=== PATIENT | female | born 1975 | race Caucasian/White ===

== ENCOUNTER → 2016-06-18 | Outpatient (CLI) | payer BC, OTHER ==
[~2016-06-18] MED LIST: ALEN70TA3 PO; DICY10CA55 PO; FRCT/ PO; LEVO112T2 PO; LEVO125T72 PO; LEVOIUD; MULT-506 PO; NXM/40 PO; PANT40TA PO; PRMVC TOP; VENL1CAP92 PO; [UNRECOGNIZED DRUG - CODE] TOP
--- NOTE | 2016-06-18 18:15 | DIAGNOSTIC IMAGING REPORT ---
RIGHT FOOT MIN 3 VIEWS ROUTINE CLINICAL HISTORY: Right foot pain following injury. COMPARISON: None FINDINGS: Alignment of the right foot is anatomic. Tarsometatarsal joints are intact. A lucency projects of the base of the right second metatarsal. This is probably artifactual. No definite acute fracture is present. There is mild plantar calcaneal spurring. Soft tissue swelling of the midfoot shown on lateral projection. IMPRESSION: 1. No definite acute fracture or dislocation of the right foot. 2. Lucency projecting over the base of the right second metatarsal. This is likely artifactual. A nondisplaced fracture could appear similar although is considered less likely. If persistent pain, short-term radiographic follow-up is recommended. Anatomic alignment of tarsometatarsal joints. Electronically signed by: Frandy William M.D. 06/18/2016 6:14 PM Dictated Date/Time: 06/18/2016 6:12 PM
== END | disposition home or self-care (01) ==
LOC: C.RAD 17:19
PROVIDERS: ATTEND Family Medicine
DX: M79.671 Pain in right foot (principal)

== ENCOUNTER → 2016-07-14 | Outpatient (CLI) | payer BC, OTHER ==
--- NOTE | 2016-07-14 19:43 | DIAGNOSTIC IMAGING REPORT ---
RIGHT FOOT 3 VIEWS. CLINICAL HISTORY: Right foot pain. FINDINGS: 3 views of the right foot are compared to study dated 06/18/2016. The skeletal structures are well mineralized. No acute fracture is identified. Minimal lucency through the base of the second metatarsal is less apparent than on the 06/18/2016 examination. The joint spaces appear preserved. A large os naviculari is incidentally noted. There is a plantar calcaneal enthesophyte. Mild soft tissue swelling is suggested in the forefoot. IMPRESSION: 1. No acute fracture is identified. 2. Previously questioned lucency through the base of the second metatarsal is less apparent on today's examination. Electronically signed by: Edu Mcdonald M.D. 07/14/2016 7:42 PM Dictated Date/Time: 07/14/2016 7:40 PM
== END | disposition home or self-care (01) ==
LOC: C.RAD 17:06
PROVIDERS: ATTEND Family Medicine
DX: T14.8 Other injury of unspecified body region (principal); X58.XXXA Exposure to other specified factors, initial encounter

== ENCOUNTER → 2016-09-26 | Outpatient (CLI) | payer BC, OTHER ==
[~2016-09-26] MED LIST changes: -ALEN70TA3 PO; -FRCT/ PO; -LEVO112T2 PO; -MULT-506 PO; -PANT40TA PO; -PRMVC TOP; -VENL1CAP92 PO; -[UNRECOGNIZED DRUG - CODE] TOP
--- NOTE | 2016-09-26 07:28 | DIAGNOSTIC IMAGING REPORT ---
MRI THE RIGHT FOREFOOT NO CONTRAST CLINICAL HISTORY: Right foot pain status post trauma. No fractures visualized on conventional radiographic imaging. COMPARISON STUDY: Conventional radiographic study dated 06/18/2016, 07/14/2016 FINDINGS: Imaging was performed in the sagittal, coronal, and axial planes. No pathologic soft tissue masses are visualized on this noncontrast study. There is mild medial soft tissue edema, the level the ankle. There is mild dorsal soft tissue edema within the forefoot. There are no areas of marrow edema to indicate occult fracture. No subluxations are visualized. There are no areas of marrow replacement to indicate neoplasm. There are no findings to indicate avascular necrosis. IMPRESSION: 1. Mild nonspecific soft tissue edema 2. No evidence of occult fracture or dislocation Electronically signed by: Breezy Daniels M.D. 09/26/2016 7:26 AM Dictated Date/Time: 09/26/2016 7:21 AM
== END | disposition home or self-care (01) ==
LOC: C.MRI 06:21
PROVIDERS: ATTEND Family Medicine
DX: M79.671 Pain in right foot (principal); R60.0 Localized edema

== ENCOUNTER → 2016-10-27 | Outpatient (CLI) | payer BC, OTHER ==
--- NOTE | 2016-10-27 07:33 | DIAGNOSTIC IMAGING REPORT ---
ABDOMEN LIMITED (US) HISTORY: Abnormal liver enzymes status ELEVATED LIVER ENZYMES. COMPARISON: 01/26/2014 FINDINGS: Pancreas: Poorly seen due to overlying bowel Liver: Diffuse fatty infiltration. Focus of diminished echogenicity anterior aspect right hepatic lobe measuring 2.5 x 1.5 cm. This may simply represent a focal area of fatty sparing. Multiphase CT of the liver versus fatty infiltration of liver is suggested. Gallbladder: Prior cholecystectomy CBD: 5 mm Right kidney: No hydronephrosis. IMPRESSION: 1. Diffuse fatty infiltration of liver. 2. Prior cholecystectomy. 3. 2.5 cm hypodensity anterior aspect right hepatic lobe. Differential considerations include a region of fatty sparing versus space-occupying lesion. A multi phase CT liver versus MRI of the abdomen is suggested as follow-up. The above report was generated using voice recognition software. It may contain grammatical, syntax or spelling errors. Electronically signed by: Sergio Rosa M.D. 10/27/2016 7:31 AM Dictated Date/Time: 10/27/2016 7:28 AM
== END | disposition home or self-care (01) ==
LOC: C.ULTR 06:40
PROVIDERS: ATTEND Family Medicine
DX: R74.8 Abnormal levels of other serum enzymes (principal)

== ENCOUNTER → 2016-11-07 | Outpatient (CLI) | payer BC, OTHER ==
[~2016-11-07] MED LIST changes: +GADOXETATE DISODIUM (NON-WT BASED PROCEDURE) IV PRN
--- NOTE | 2016-11-07 09:14 | DIAGNOSTIC IMAGING REPORT ---
MRI OF THE ABDOMEN WITH AND WITHOUT CONTRAST LIVER PROTOCOL CLINICAL HISTORY: Abnormal finding on ultrasound. Elevated liver enzymes. COMPARISON STUDY: CT of the abdomen and pelvis July 31, 2015 and right upper quadrant ultrasound October 27, 2016. TECHNIQUE: Utilizing a 1.5 Antonette magnet and dedicated coil, multiplanar, multiecho imaging of the abdomen was performed pre and postcontrast administration. Post contrast imaging was performed following intravenous injection of 10 cc of Eovist. Dynamic enhancement was utilized. 20 minute delayed phase imaging was performed. FINDINGS: The liver is mildly enlarged. Loss of signal within the liver parenchyma on the out of phase sequence indicates marked fatty infiltration of the liver. The liver is not cirrhotic by MRI. Note is made of a 2.2 x 1.8 cm segment 5 subcapsular hepatic lesion which corresponds to the lesion shown on prior ultrasound of October 27, 2016. This lesion is hypervascular and remains hyperintense compared to the background liver on delayed postcontrast phases. This lesion retains contrast on the 20 minute delayed phase sequence. Restricted diffusion is noted within this lesion. Two smaller but otherwise similar-appearing right hepatic lobe lesions are noted. These each measure 8 mm and are shown on axial postcontrast images 49 and 53 of 108. There is no biliary or pancreatic ductal dilatation. The gallbladder is surgically absent. The spleen, adrenal glands and kidneys are normal. There is no abdominal lymphadenopathy or ascites. IMPRESSION: 1. Three hepatic lesions, the largest of which is a 2.2 cm segment 5 lesion which corresponds to the lesion on ultrasound of October 27, 2016. Two smaller lesions measure 8 mm. These lesions have similar imaging characteristics and are highly suggestive of focal nodular hyperplasia, a benign entity. Although a benign process is strongly favored, a follow-up MRI of the liver in 6 months to ensure stability is recommended. 2. Mild hepatomegaly and marked fatty infiltration of the liver. 3. No biliary ductal dilatation status post cholecystectomy. Electronically signed by: Frandy William M.D. 11/07/2016 9:13 AM Dictated Date/Time: 11/07/2016 8:35 AM
== END | disposition home or self-care (01) ==
LOC: C.MRIBC 11-03 07:18
PROVIDERS: ATTEND Family Medicine
DX: R74.8 Abnormal levels of other serum enzymes (principal)

== ENCOUNTER → 2016-11-27 | Outpatient (CLI) | payer BC, OTHER ==
[~2016-11-27] MED LIST changes: -GADOXETATE DISODIUM (NON-WT BASED PROCEDURE) IV PRN
--- NOTE | 2016-11-27 14:20 | MAMMOGRAPHY REPORT ---
BILATERAL DIGITAL SCREENING MAMMOGRAM TOMOSYNTHESIS WITH CAD: 11/27/2016 CLINICAL HISTORY: Routine screening. TECHNIQUE: Breast tomosynthesis in addition to standard 2D mammography was performed. Current study was also evaluated with a Computer Aided Detection (CAD) system. COMPARISON: Comparison is made to exams dated: 11/26/2015 mammogram, 10/04/2014 mammogram, 04/29/2013 u ltrasound, and 04/29/2013 mammogram - [facility]. BREAST COMPOSITION: The tissue of both breasts is heterogeneously dense, which may obscure small mas ses. FINDINGS: No suspicious masses, calcifications, or areas of architectural distortion are noted in ei ther breast. There has been no significant interval change compared to prior exams. IMPRESSION: ACR BI-RADS CATEGORY 1: NEGATIVE There is no mammographic evidence of malignancy. A 1 year screening mammogram is recommended. The pa tient will receive written notification of the results. Approximately 10% of breast cancers are not detected with mammography. A negative mammographic report should not delay biopsy if a clinically suggestive mass is present. Marisela Baltazar M.D. ah/:11/27/2016 08:07:19 [employer] Correspondent: Samina Sauceda RT(R)(M), [facility] letter sent: Normal 1/2 BI-RADS Code: ACR BI-RADS Category 1: Negative
== END | disposition home or self-care (01) ==
LOC: C.MAMM 07:22
PROVIDERS: ATTEND Family Medicine
DX: Z12.31 Encounter for screening mammogram for malignant neoplasm of breast (principal)

== ENCOUNTER → 2016-12-11 | Outpatient (CLI) | payer BC, OTHER ==
--- NOTE | 2016-12-11 22:25 | DIAGNOSTIC IMAGING REPORT ---
PARATHYROID IMAGING CLINICAL HISTORY: HX HYPERPARATHYROIDISM REMOVED, elevated PARATHYROID HORMONE REMAINS. COMPARISON STUDY: Thyroid ultrasound 12/31/2015. TECHNIQUE: 15 minutes and 3 hours following the intravenous ministration of 22 mCi of technetium 99 M Cardiolite, static and SPECT images of the neck and chest were performed. FINDINGS: No suspicious areas of radiotracer uptake on the delayed sequences to suggest a parathyroid adenoma within the neck or chest. IMPRESSION: No evidence for a parathyroid adenoma. Electronically signed by: Matt Manzo M.D. 12/12/2016 3:24 PM Dictated Date/Time: 12/11/2016 10:20 PM
== END | disposition home or self-care (01) ==
LOC: C.NUCL 15:08
PROVIDERS: ATTEND Surgery
DX: Z86.39 Personal history of other endocrine, nutritional and metabolic disease (principal)

== ENCOUNTER → 2016-12-19 | Outpatient (CLI) | payer BC, OTHER ==
--- NOTE | 2016-12-19 08:19 | DIAGNOSTIC IMAGING REPORT ---
SOFT TISS HEAD/NECK-THYROID CLINICAL HISTORY: 41 years-old Female with THYROID PAIN. Symptoms are acute in nature. COMPARISON: Thyroid ultrasound 12/31/2015 TECHNIQUE: Multiple real time sonographic images of the thyroid were obtained accessing duval scale appearance and color doppler flow. FINDINGS: MEASUREMENTS: Right lobe: 3.4 x 1.1 x 1.0 cm Left lobe: 2.7 x 1.1 x 0.8 cm Isthmus: 0.2 cm PARENCHYMA: The thyroid parenchymal echotexture is diffusely heterogeneous. NODULES: No discrete nodules are appreciated. IMPRESSION: Diffusely heterogeneous thyroid parenchyma without discrete nodule identified. The above report was generated using voice recognition software. It may contain grammatical, syntax or spelling errors. Electronically signed by: Tony Schultz M.D. 12/19/2016 8:17 AM Dictated Date/Time: 12/19/2016 8:15 AM
== END | disposition home or self-care (01) ==
LOC: C.ULTR 06:39
PROVIDERS: ATTEND Family Medicine
DX: E07.9 Disorder of thyroid, unspecified (principal)

== ENCOUNTER → 2017-01-29 | Outpatient (CLI) | payer BC, OTHER ==
[~2017-01-29] MED LIST changes: +ALEN70TA3 PO; -DICY10CA55 PO; +FRCT/ PO; +LEVO112T2 PO; -LEVO125T72 PO; -LEVOIUD; +MULT-506 PO; -NXM/40 PO; +PANT40TA PO; +PRMVC TOP; +VENL1CAP92 PO; +[UNRECOGNIZED DRUG - CODE] TOP
[2017-02-03 22:32] LABS: IGA SERUM 323 mg/dL (81-463); TIS TRANS IGA 1 U/mL (<4)
== END | disposition home or self-care (01) ==
LOC: C.LAB1850 09:41
PROVIDERS: ATTEND Internal Medicine Endocrinology, Diabetes & Metabolism
DX: M85.80 Other specified disorders of bone density and structure, unspecified site (principal)

== ENCOUNTER → 2017-02-06 | Outpatient (CLI) | payer BC, OTHER ==
[2017-02-06 14:15] LABS: PARTIAL THROMBOPLASTIN RATIO 1.1; PROTHROMBIN TIME (PATIENT) 10.6 SECONDS (9.0-12.0)
[2017-02-06 14:19] LABS: BASO % 0.4 %; BASO ABS # 0.02 K/uL (0-0.2); COMPLETE YES; EOS % 1.9 %; HEMATOCRIT 36.4 % (37-47); IG% 0.2 %; LYMPH ABS # 1.92 K/uL (1.2-3.4); MEAN CELL VOLUME 86.5 fL (80-100); MEAN CORPUSCULAR HEMOGLOBIN 28.5 pg (25-34); MEAN PLATELET VOLUME 10.5 fL (7.4-10.4); MONO % 9.4 %; NEUT % 54.1 %; PLATELET COUNT 249 K/uL (130-400); RED BLOOD COUNT 4.21 M/uL (4.2-5.4); WHITE BLOOD COUNT 5.65 K/uL (4.8-10.8)
[2017-02-06 14:29] LABS: POTASSIUM 3.7 mmol/L (3.5-5.1)
== END | disposition home or self-care (01) ==
LOC: C.LAB 12:56
DX: Z01.818 Encounter for other preprocedural examination (principal)

== ENCOUNTER → 2017-02-13 | Day surgery (SDC) | payer BC, OTHER ==
[2017-01-23 09:03] VITALS: Ht 160 cm; Wt 95.5 kg
[~2017-02-13] VITALS: Ht 160 cm; Wt 95.5 kg
[~2017-02-13] MED LIST changes: +EpINEphrine HCL INJ 1 MG/ML 5ML SYRINGE ONE; +FENTANYL CITRATE INJ 50 MCG/1 ML 2 ML VIAL ONE; +LACTATED RINGER'S 1000ML 1,000 ML IV SCH; +LIDOCAINE HCL 2% 2 ML VIAL (20MG/ML) ONE; +MIDAZOLAM HCL 1 MG/ML 2ML VIAL ONE; +PROPOFOL IV EMULSION 10 MG/ML 20 ML VIAL IV ONE; +ROCURONIUM BROMIDE 10 MG/ML 5 ML VIAL IV ONE; +SUCCINYLCHOLINE CHLORIDE 20 MG/ML 10 ML VIAL IV ONE
[2017-02-13 11:29] VITALS: BP 131/91; PULSE 72; TEMP 36.6; O2SAT 99
--- NOTE | 2017-02-13 13:19 | Progress Note ---
Progress Note Date of Service Feb 13, 2017. Progress Note PATIENT'S VOICE NORMAL TODAY. BEDSIDE FLEXIBLE LARYNGOSCOPY PERFORMED THROUGH LEFT NASAL CAVITY AFTER ANESTHETIZING WITH LIDOCAINE/AFRIN SPRAY. SMALL RESIDUAL R TVF GRANULOMA/POLYP REMAINS BUT 90% OF IT GONE. WILL HAVE PATIENT COME TO THE OFFICE IN 1MONTH FOR REPEAT LARYNGOSCOPY.
== END | disposition home or self-care (01) ==
LOC: X.SURG 11:22
DX: L92.9 Granulomatous disorder of the skin and subcutaneous tissue, unspecified (principal); Z53.9 Procedure and treatment not carried out, unspecified reason

== ENCOUNTER → 2017-04-06 | Outpatient (CLI) | payer BC, OTHER ==
[~2017-04-06] MED LIST changes: -EpINEphrine HCL INJ 1 MG/ML 5ML SYRINGE ONE; -FENTANYL CITRATE INJ 50 MCG/1 ML 2 ML VIAL ONE; -LACTATED RINGER'S 1000ML 1,000 ML IV SCH; -LIDOCAINE HCL 2% 2 ML VIAL (20MG/ML) ONE; -MIDAZOLAM HCL 1 MG/ML 2ML VIAL ONE; -PROPOFOL IV EMULSION 10 MG/ML 20 ML VIAL IV ONE; -ROCURONIUM BROMIDE 10 MG/ML 5 ML VIAL IV ONE; -SUCCINYLCHOLINE CHLORIDE 20 MG/ML 10 ML VIAL IV ONE
--- NOTE | 2017-04-06 07:51 | DIAGNOSTIC IMAGING REPORT ---
ULTRASOUND OF THE THYROID GLAND CLINICAL HISTORY: Hypothyroidism. COMPARISON STUDY: Thyroid ultrasound dated 12/19/2016. TECHNIQUE: Real-time, grayscale, and color flow sonography of the thyroid gland is performed utilizing a high-frequency linear transducer. Images are reviewed in the transverse and longitudinal planes. FINDINGS: Right lobe: The right lobe of the thyroid gland is atrophic and heterogeneous in echotexture, measuring 3.2 x 1.0 x 1.1 cm. Left lobe: The left lobe of the thyroid gland is normal in size and homogeneous in echotexture, measuring 2.4 x 0.7 x 1.3 cm. Isthmus: The thyroid isthmus is atrophic and measures 0.2 cm in AP diameter. IMPRESSION: The thyroid gland is atrophic and heterogeneous in echotexture, similar to previous. Electronically signed by: Edu Mcdonald M.D. 04/06/2017 7:50 AM Dictated Date/Time: 04/06/2017 7:47 AM
== END | disposition home or self-care (01) ==
LOC: C.ULTR 06:58
PROVIDERS: ATTEND Family Medicine
DX: E21.3 Hyperparathyroidism, unspecified (principal); E03.4 Atrophy of thyroid (acquired)

== ENCOUNTER → 2017-04-13 | Outpatient (CLI) | payer BC, OTHER ==
--- NOTE | 2017-04-13 18:40 | DIAGNOSTIC IMAGING REPORT ---
L WRIST MIN 3 VIEWS ROUTINE CLINICAL HISTORY: Left wrist pain status post trauma COMPARISON: None. DISCUSSION: No acute fractures or dislocations are visualized. A partially visualized bony density on the lateral view adjacent to the dorsum of the distal carpal row, is unlikely to be acute IMPRESSION: No acute fractures identified. Electronically signed by: Breezy Daniels M.D. 04/13/2017 6:38 PM Dictated Date/Time: 04/13/2017 6:37 PM
== END | disposition home or self-care (01) ==
LOC: C.RAD 17:19
PROVIDERS: ATTEND Family Medicine
DX: S69.92XA Unspecified injury of left wrist, hand and finger(s), initial encounter (principal); X58.XXXA Exposure to other specified factors, initial encounter

== ENCOUNTER → 2017-04-23 | Outpatient (CLI) | payer BC, OTHER ==
[~2017-04-23] MED LIST changes: +GADOXETATE DISODIUM (NON-WT BASED PROCEDURE) IV PRN
--- NOTE | 2017-04-23 19:31 | DIAGNOSTIC IMAGING REPORT ---
LIVER COMBO CLINICAL HISTORY: 41 years-old Female presenting with ELEVATED LIVER ENZYMES, follow-up, right-sided abdominal pain. TECHNIQUE: Multisequence, multiplanar MR imaging of the abdomen was performed before and after the administration of intravenous contrast. IV contrast: 10 mL of Eovist. COMPARISON: 11/07/2016. FINDINGS: Localizer images: Unremarkable. Lung bases: Lungs and pleural spaces clear. Normal heart size. No pericardial or pleural effusion. Liver: Normal morphology. Hepatic fat fraction measures 21.9%, indicative of moderate steatosis. Previously noted homogeneously arterially hyperenhancing lesions are unchanged in size and again demonstrate peripheral retention of contrast on hepatocellular significant phase (series 20 images 53 and 48). The larger lesion in segment 5 measures 1.9 cm, stable to slightly decreased in size from prior. Additional lesions are subcentimeter and also unchanged. Unlike the remainder of the hepatic parenchyma, these lesions demonstrate fatty sparing. These lesions demonstrate mild T2 hyperintensity and are not apparent on precontrast T1 weighted imaging. These lesions are also mildly diffusion hyperintense. Patent hepatic vasculature. Biliary: No intrahepatic or extrahepatic biliary ductal dilatation. Expected excretion of contrast into the bile ducts. Contrast has not yet reached the duodenum. Gallbladder surgically absent. Pancreas: Normal. Spleen: Normal. Adrenal glands: Normal. Kidneys and ureters: Normal. No hydronephrosis. Bowel: Normal. No bowel obstruction. Peritoneal cavity: No free fluid or intraperitoneal gas. Lymph nodes: No enlarged lymph nodes in the abdomen. Vasculature: Aorta and IVC patent and normal in caliber. Abdominal wall: Nonspecific edema noted along the abdominal wall musculature greater on the left. Musculoskeletal: Normal. IMPRESSION: 1. Stable appearance of three lesions with signal characteristics most compatible with focal nodular hyperplasia, which are benign. There have been case reports of inflammatory adenomas with identical signal characteristics as FNH. 2. Moderate hepatic steatosis. Electronically signed by: Pranay Hinkle M.D. 04/23/2017 7:30 PM Dictated Date/Time: 04/23/2017 7:16 PM
== END | disposition home or self-care (01) ==
LOC: C.MRI 17:34
PROVIDERS: ATTEND Family Medicine
DX: R74.8 Abnormal levels of other serum enzymes (principal); K76.0 Fatty (change of) liver, not elsewhere classified; R93.2 Abnormal findings on diagnostic imaging of liver and biliary tract

== ENCOUNTER → 2017-06-05 | Outpatient (CLI) | payer BC, OTHER ==
[~2017-06-05] MED LIST changes: -GADOXETATE DISODIUM (NON-WT BASED PROCEDURE) IV PRN
--- NOTE | 2017-06-05 18:14 | DIAGNOSTIC IMAGING REPORT ---
BRAIN WITHOUT CONTRAST HISTORY: Headache CHRONIC MIGRAINE TECHNIQUE: Multiplanar multisequence MRI of the brain was performed without the use of contrast. COMPARISON STUDY: 06/27/2010 FINDINGS: There are no areas of restricted diffusion to suggest acute infarction. The midline structures are intact. The paranasal sinuses are clear. The mastoid air cells are clear. The ventricles and sulci are within normal limits for age. There is no mass, hematoma, midline shift. The major vascular flow-voids at the skull base are well maintained. IMPRESSION: No acute intracranial abnormality. No change from the prior study The above report was generated using voice recognition software. It may contain grammatical, syntax or spelling errors. Electronically signed by: Sergio Rosa M.D. 06/05/2017 6:13 PM Dictated Date/Time: 06/05/2017 6:10 PM
== END | disposition home or self-care (01) ==
LOC: C.MRI 17:04
PROVIDERS: ATTEND Family Medicine
DX: G43.709 Chronic migraine without aura, not intractable, without status migrainosus (principal)

== ENCOUNTER → 2017-08-05 | Outpatient (CLI) | payer BC, OTHER ==
--- NOTE | 2017-08-05 07:35 | DIAGNOSTIC IMAGING REPORT ---
SOFT TISS HEAD/NECK-THYROID CLINICAL HISTORY: 41 years-old Female with ACUTE THYROIDITIS. COMPARISON: Thyroid ultrasound 04/06/2017 TECHNIQUE: Multiple real time sonographic images of the thyroid were obtained accessing duval scale appearance and color doppler flow. FINDINGS: MEASUREMENTS: Right lobe: 2.7 x 1.1 x 0.8 cm Left lobe: 2.5 x 0.8 x 0.7 cm Isthmus: 0.2 cm PARENCHYMA: The thyroid parenchymal echotexture is diffusely heterogeneous. NODULES: No discrete nodules are appreciated. IMPRESSION: Heterogeneous and atrophic appearance of the thyroid parenchyma without discrete nodule identified. The above report was generated using voice recognition software. It may contain grammatical, syntax or spelling errors. Electronically signed by: Tony Schultz M.D. 08/05/2017 7:34 AM Dictated Date/Time: 08/05/2017 7:32 AM
== END | disposition home or self-care (01) ==
LOC: C.ULTR 06:50
PROVIDERS: ATTEND Family Medicine
DX: E06.0 Acute thyroiditis (principal)

== ENCOUNTER → 2017-10-17 | Outpatient (CLI) | payer BC ==
[~2017-10-17] MED LIST changes: -VENL1CAP92 PO; +VENL37.52 PO
[2017-10-17 13:05] LABS: ALBUMIN 3.6 gm/dl (3.4-5.0); ALKALINE PHOSPHATASE 78 U/L (45-117); ALT/SGPT 51 U/L (12-78); AST/SGOT 25 U/L (15-37); BLOOD UREA NITROGEN 10 mg/dl (7-18); CALCIUM 8.1 mg/dl (8.5-10.1); CARBON DIOXIDE 28 mmol/L (21-32); CHOLESTEROL 231 mg/dl (0-200); CREATININE 0.68 mg/dl (0.60-1.20); GLUCOSE 89 mg/dl (70-99); LDL CHOLESTEROL CALCULATED 136 mg/dl; POTASSIUM 3.8 mmol/L (3.5-5.1); SODIUM 136 mmol/L (136-145); TOTAL PROTEIN 7.5 gm/dl (6.4-8.2)
== END | disposition home or self-care (01) ==
LOC: C.LAB1850 10:48
PROVIDERS: ATTEND Internal Medicine Endocrinology, Diabetes & Metabolism
DX: G43.809 Other migraine, not intractable, without status migrainosus (principal); E03.9 Hypothyroidism, unspecified

== ENCOUNTER 2024-11-01 06:44 | Observation (INO) ==
[2024-11-01 06:50] VITALS: TEMP 98.2
[2024-11-01] MEDS: SODIUM CHLORIDE 0.9% 1,000 ML IV STA (06:58)
--- NOTE | 2024-11-01 06:59 | Emergency Department Note ---
Impression & Plan Elevated troponin Admit ED Provider Note HPI: History obtained from patient. The patient is a 49-year-old female who presents the emergency department with a chief complaint of palpitations and chest pain. Patient states that she woke up with the symptoms at about 3:30 AM. Patient states that the time she also felt like she was going to have a syncopal event but she states she did not. Patient notes a history of SVT. On arrival here to the ED, the patient is hemodynamically stable. Heart rate is within normal limits. Patient otherwise appears to be in no acute distress on arrival. ROS: - Per HPI Differential Diagnosis: Arrhythmia to include SVT, atrial fibrillation with RVR, ventricular tachycardia, acute coronary syndrome, pulmonary embolism, aortic dissection, costochondritis, pleuritis, amongst other potential pathologies. *Outpatient medications and allergy history reviewed. PE: General: Alert HEENT: Normocephalic, trachea midline Eyes: Extraocular eye movement is intact, no scleral erythema Pulmonary: Clear to auscultation bilaterally, no wheezing Cardio: Regular rate and rhythm GI: Abdomen is soft to palpation : No suprapubic tenderness MSK: No evidence of trauma or malformation of the extremities, no edema Skin: No evidence of rash Neuro: Alert, no focal deficits Psychiatric: Cooperative INDEPENDENT INTERPRETATIONS: potline monitor: (As interpreted by myself): - An order was placed for continuous cardiac monitoring - Patient was noted to be in sinus rhythm with a rate of 80 EKG: (As interpreted by myself): Rate: 79 Rhythm: Normal sinus rhythm Intervals: Within normal limits ST changes: No ST elevation Time: 0653 Chest x-ray: (As interpreted by myself): No acute disease Interventions provided in ED: - IV fluid bolus, aspirin Medical Decision Making: IV was established and lab work obtained, patient was placed on hall monitor. Lab work shows no leukocytosis, hemoglobin is normal, platelet count is normal, D-dimer was obtained that is within normal limits. CMP does not show any evidence of any critical findings. Troponin is noted to be mildly elevated at 20.5. Upon review of the patient's previous lab work she has not had a troponin elevation in the past. TSH is normal, magnesium is also normal. Patient has not displayed any SVT while here in the ED on the monitor. On my reevaluation the patient remains well-appearing, she does complain of some mild chest discomfort, I think this in conjunction with the elevated troponin would justify admission. This could possibly be demand ischemia in the setting of SVT earlier in the morning however at this point it would be difficult to exclude other possibilities. Patient is in agreement for admission, I did discuss the patient's presentation with the on-call hospitalist, Dr. Tirado, and the patient was placed for admission in stable condition. Consultants/Discussions held with other healthcare providers: - Hospitalist, Dr. Tirado Disposition discussion held by myself with: - Patient and patient's spouse at the bedside Diagnosis: 1. Chest pain, acute 2. Elevated high-sensitivity troponin, acute 3. Sensation of palpitations, acute Disposition: Admission Sergio Abdalla DO Emergency Medicine Past Med/Surg History Problem List (Updated 11/01/24 @ 08:05 by Sergio Abdalla DO) Elevated troponin (Acute) Syncope GERD (gastroesophageal reflux disease) Elevated LFTs Umbilical hernia without mention of obstruction or gangrene Chest pain Encounter for pre-operative examination Varicose veins of both lower extremities Palpitations Family history of cardiac disorder Dyslipidemia Atypical chest pain Family history of colon cancer Fatty liver disease, nonalcoholic RUQ abdominal pain History of high blood pressure (Acute) Anxiety (Acute) Eczema (Acute) Elevated parathyroid hormone (Acute) Granuloma secondary to intubation (Acute) Hannah's thyroiditis (Acute) History of miscarriage (Acute 04/19/12) Hypothyroidism (Acute) Laryngopharyngeal reflux (Acute) Migraine headache (Acute) Osteopenia (Acute) Pelvic pain (Acute) Thyroid pain (Acute) Urinary frequency (Acute) Urinary urgency (Acute) Vitamin D insufficiency (Acute) Right upper quadrant abdominal pain (Acute) Biliary colic (Acute) Cyst of ovary, left (Chronic) IBS (irritable bowel syndrome) (Chronic) Medical History Hx of motion sickness Nausea and vomiting after administration of anesthetic agent Hx of chest pain Hx of migraines History of palpitations Sleep apnea Anxiety and depression Hyperlipidemia Hypertension Hypothyroidism History of gastritis Lower back pain Surgical History History of breast biopsy H/O parathyroidectomy History of carpal tunnel release Hx of cardiac catheterization History of vein stripping Hx of colonoscopy History of cholecystectomy History of D&C H/O esophagogastroduodenoscopy H/O: hysterectomy History of parathyroid surgery [place] teeth removed (04/19/12) Family History Mother Colon cancer Father Heart problem Hypertension Brother Heart problem Environmental allergies Hypertension Grandmother Breast cancer Grandmother Diabetes Asthma Unknown Breast cancer Sister Sinusitis Environmental allergies Other No family history of adverse response to anesthesia Social History Smoking Status: Never smoker Second Hand Exposure: No; Do You Dip or Chew Tobacco: No; Hx Alcohol Use: Yes Alcohol type: wine Alcohol Intake Frequency: Monthly or Less Hx Substance Use: No Preferred Language: Palauan Communication Ability: Effective Visual Impairment: No Limitations Hearing Ability: Normal Gis Consultant Required: No Beliefs That Will Affect Care: None marital status: Current Living Situation: Spouse and Family current occupational status: employed current occupation: medical safety and security officer How many Children do You have: 2 Feels Safe at Home: Yes Diet: regular caffeine: Yes (3-4 coffee daily) during the past year weight has: decreased > 10 lbs Dental Care, Regularly: Yes Physical Activity Frequency: 1-2 Times per Week Physical Activity Frequency Comment: walking Seatbelt Use: always Sunscreen Use: Yes Do you think of yourself as: straight/heterosexual Gender Identity: Female Assistive Devices: CPAP and Glasses Allergies Allergies Allergy/AdvReac Type Severity Reaction Status Date / Time bupropion [From Wellbutrin] Allergy Severe SOB Verified 10/03/24 08:31 sumatriptan AdvReac Severe HEART Verified 10/03/24 08:31 PALPITATIONS Home Meds Home Medications Medication Instructions Recorded Confirmed venlafaxine 150 mg 150 mg PO QAM 09/30/18 10/03/24 capsule,extended release 24 hr estradiol 0.06 mg/24 hr weekly 1 patch topical UD 01/20/19 10/03/24 transdermal patch esomeprazole magnesium 40 mg 40 mg PO BID 11/06/20 10/03/24 capsule,delayed release (Nexium) butalbital 50 mg-acetaminophen 300 1 cap PO Q4H PRN Migraine Headache 09/25/21 10/03/24 mg-caffeine 40 mg-codeine 30 mg cap (Fioricet with Codeine) fremanezumab-vfrm 225 mg/1.5 mL 225 mg subcut MONTHLY 09/25/21 10/03/24 subcutaneous auto-injector (Ajovy) multivitamin 1 tab PO HS 08/12/23 10/03/24 conjugated estrogens 0.625 mg/gram 0.625 mg vaginal DAILY 02/08/24 10/03/24 vaginal cream (Premarin) risankizumab-rzaa 150 mg/mL 150 mg subcut UD 05/23/24 10/03/24 subcutaneous pen injector (Skyrizi) amlodipine 5 mg tablet 5 mg PO QAM 05/30/24 09/18/24 telmisartan 40 mg tablet 40 mg PO HS 05/30/24 09/18/24 levothyroxine 112 mcg tablet 112 mcg PO DAILY 10/03/24 10/03/24 semaglutide (weight loss) 2.4 1.7 mg subcut Q7D 10/03/24 10/03/24 mg/0.75 mL subcutaneous pen injector (Zena) Previous Rx's Medication Instructions Recorded metoprolol succinate 100 mg 100 mg PO QAM #90 tabs 02/08/24 tablet,extended release 24 hr metoprolol tartrate 25 mg tablet 25 mg PO DAILY PRN palpitations 08/25/24 #30 tabs nitroglycerin 0.4 mg sublingual 0.4 mg sublingual Q5M PRN chest 08/25/24 tablet pain #30 tabs Results & Data (ED) Vital Signs Vital Signs - 24 hr 11/01/24 06:47 11/01/24 06:56 11/01/24 07:11 Temperature 36.8 C Temperature Source Temporal Artery Scan Pulse Rate 78 70 68 Pulse Rhythm Regular Regular Pulse Strength Normal Respiratory Rate 20 20 Respiratory Effort / Characteristics Non-Labored Spontaneous Respiratory Depth Normal Respiratory Pattern Regular Blood Pressure 158/103 H Blood Pressure Mean 121 Blood Pressure Position Sitting Pulse Oximetry 95 99 Oxygen Delivery Method Room Air Room Air Sepsis Recent Fever Within 48 Hours No Sepsis New/Unexplained Change in Mental Status N/A Sepsis Action Taken by Nursing No Action Required Laboratory Data 11/01/24 06:55 11/01/24 06:55 Lab Results 11/01/24 Range/Units 06:55 WBC 6.00 (4.8-10.8) K/ul RBC 4.31 (4.20-5.40) M/uL Hgb 12.4 (12.0-16.0) g/dl Hct 36.8 L (37.0-47.0) % MCV 85.4 (80.0-100.0) fL MCH 28.8 (25.0-34.0) pg MCHC 33.7 (32.0-36.0) g/dL RDW Std Deviation 41.2 (36.4-46.3) fL RDW Coeff of Dwayne 13.2 (11.5-14.5) % Plt Count 212 (130-400) K/uL MPV 9.0 L (9.4-12.4) fL Immature Gran % (Auto) 0.3 % Neut % (Auto) 72.6 % Lymph % (Auto) 18.3 % Vernon % (Auto) 7.5 % Eos % (Auto) 1.0 % Baso % (Auto) 0.3 % Neut # (Auto) 4.35 (1.40-6.50) K/uL Lymph # (Auto) 1.10 L (1.20-3.40) K/uL Vernon # (Auto) 0.45 (0.11-0.59) K/uL Eos # (Auto) 0.06 (0.00-0.50) K/uL Baso # (Auto) 0.02 (0.00-0.20) K/uL Immature Gran # (Auto) 0.02 (0.01-0.20) K/uL PT 10.6 (9.0-12.0) Seconds INR 1.0 (0.9-1.1) D-Dimer < 190 (0-500) ug/L FEU Sodium 139 (136-145) mmol/L Potassium 3.4 L (3.5-5.1) mmol/L Chloride 104 (98-107) mmol/L Carbon Dioxide 30 (21-32) mmol/L Anion Gap 5 (3-11) BUN 6 (6-23) mg/dl Creatinine 0.60 (0.6-1.2) mg/dl Est Cr Clr Drug Dosing 91.8 ml/min eGFR 108.61 BUN/Creatinine Ratio 10.0 (10-20) Glucose 95 (70-99(Fasting)) mg/dl Calcium 8.6 (8.6-10.3) mg/dl Magnesium 2.2 (1.7-2.4) mg/dl Total Bilirubin 0.4 (0.2-1.0) mg/dl AST 15 (13-39) U/L ALT 15 (7-52) U/L Alkaline Phosphatase 47 (34-104) U/L Troponin I High Sens 20.5 H (0-14) pg/ml Total Protein 6.9 (6.0-8.3) gm/dl Albumin 4.1 (3.4-5.0) gm/dl Globulin 2.8 (2.5-4.0) gm/dl Albumin/Globulin Ratio 1.5 (0.9-2) Lipase 26 (11-82) U/L TSH 0.712 (0.300-4.500) uIu/ml Administered Medications Discontinued Medications Aspirin (Aspirin Chew 324 Mg) 324 mg PO NOW STA Stop: 11/01/24 07:56 Last Admin: 11/01/24 08:02 Dose: 324 mg Documented By: TDM Sodium Chloride (Nss) 1,000 mls @ 999 mls/hr IV .Q1H1M STA Stop: 11/01/24 07:56 Last Admin: 11/01/24 06:58 Dose: 999 mls/hr Documented By: MR Imaging Data Radiologist's Impression: Chest X-Ray 11/01/24 06:56 EXAM: XR chest 1V portable CLINICAL HISTORY: Chest pain, nonspecific. TECHNIQUE: An X-ray image of the chest is obtained in AP projection. COMPARISON: 01/22/2024. FINDINGS: Pulmonary Parenchyma: Lungs are clear bilaterally. No evidence of consolidation, collapse, or focal opacities. No pulmonary nodules are identified. No evidence of pleural effusion or pleural thickening. Heart and Mediastinum: Heart size and shape are normal. No mediastinal widening or masses. No hilar or mediastinal lymphadenopathy. Bony Thorax: Bony thorax appears intact without fractures or deformities. Soft Tissues: Soft tissues overlying the chest wall are unremarkable. IMPRESSION: 1. No acute cardiopulmonary abnormalities are identified. 2. Comparing previous X-ray dated 01/22/2024, findings remain stable. Electronically signed by Bharathi Porter 11-01-2024 07:51 AM Discharge Plan Visit Data Chief Complaint: Syncope (Near Syncope) Stated Complaint: NEAR SYNCOPE ED Provider: Sergio Abdalla Discharge Problem: Elevated troponin Patient Disposition: Admitted As Inpatient Condition: Fair Forms Stand Alone Forms: My [facility] Prescriptions Prescriptions: No Action Skyrizi 150 mg/mL pen injector 150 mg subcut UD Patient Comments: every 3 months venlafaxine 150 mg capsule,extended release 24hr 150 mg PO QAM estradiol 0.06 mg/24 hr patch weekly 1 patch topical UD Rx Instructions: twice a week, Thu/ esomeprazole magnesium [Nexium] 40 mg capsule,delayed release(DR/EC) 40 mg PO BID Ajovy Autoinjector 225 mg/1.5 mL auto-injector 225 mg subcut MONTHLY Rx Instructions: every month [id number] [Fioricet with Codeine] 64-334-08-30 mg capsule 1 cap PO Q4H PRN (Reason: Migraine Headache) levothyroxine 112 mcg tablet 112 mcg PO DAILY Premarin 0.625 mg/gram cream 0.625 mg vaginal DAILY Rx Instructions: off 5 days; repeat cycle metoprolol succinate 100 mg tablet extended release 24 hr 100 mg PO QAM Qty: 90 3RF Hold Instructions: Home Medication placed on hold at Doctor's office Wegovy 2.4 mg/0.75 mL pen injector 1.7 mg subcut Q7D Patient Comments: pt states med has been on hold since Mar 2024 metoprolol tartrate 25 mg tablet 25 mg PO DAILY PRN (Reason: palpitations) Qty: 30 2RF nitroglycerin 0.4 mg tablet, sublingual 0.4 mg sublingual Q5M PRN (Reason: chest pain) Qty: 30 3RF Rx Instructions: do not exceed 3 doses per episode amlodipine 5 mg tablet 5 mg PO QAM Hold Instructions: Home Medication placed on hold at Doctor's office telmisartan 40 mg tablet 40 mg PO HS Hold Instructions: Home Medication placed on hold at Doctor's office multivitamin Tablet 1 tab PO HS Referrals Referrals: Ninfa Brown DO [Primary Care Provider] -
[2024-11-01 07:11] LABS: Hematocrit (blood only) 36.8 % (37.0-47.0); Hemoglobin 12.4 g/dl (12.0-16.0); Immature Granulocytes # (auto) 0.02 K/uL (0.01-0.20); Immature Granulocytes % (auto) 0.3 %; Mean Corpuscular Hemoglobin 28.8 pg (25.0-34.0); Mean Corpuscular Volume 85.4 fL (80.0-100.0); Platelet Count 212 K/uL (130-400); RDW Standard Deviation 41.2 fL (36.4-46.3); Red Blood Count 4.31 M/uL (4.20-5.40); White Blood Count 6.00 K/ul (4.8-10.8)
[2024-11-01 07:30] LABS: Alanine Aminotransferase 15.0 U/L (7-52); Albumin Globulin Ratio 1.5 (0.9-2); Alkaline Phosphatase 47.0 U/L (34-104); Anion Gap 5.0 (3-11); Bilirubin,Total 0.4 mg/dl (0.2-1.0); Blood Urea Nitrogen 6.0 mg/dl (6-23); Calcium 8.6 mg/dl (8.6-10.3); Carbon Dioxide 30.0 mmol/L (21-32); Chloride 104.0 mmol/L (98-107); Creatinine Clr Calc Pharmacy 91.8 ml/min; Globulin 2.8 gm/dl (2.5-4.0); Glucose 95.0 mg/dl (70-99(Fasting)); Lipase 26.0 U/L (11-82); Magnesium 2.2 mg/dl (1.7-2.4); Potassium 3.4 mmol/L (3.5-5.1); Sodium 139.0 mmol/L (136-145); Total Protein 6.9 gm/dl (6.0-8.3)
[2024-11-01 07:42] LABS: INR 1.0 (0.9-1.1); Prothrombin Time 10.6 Seconds (9.0-12.0)
[2024-11-01 07:46] LABS: Thyroid Stimulating Hormone 0.712 uIu/ml (0.300-4.500)
--- NOTE | 2024-11-01 07:52 | XRay Report ---
EXAM: XR chest 1V portable CLINICAL HISTORY: Chest pain, nonspecific. TECHNIQUE: An X-ray image of the chest is obtained in AP projection. COMPARISON: 01/22/2024. FINDINGS: Pulmonary Parenchyma: Lungs are clear bilaterally. No evidence of consolidation, collapse, or focal opacities. No pulmonary nodules are identified. No evidence of pleural effusion or pleural thickening. Heart and Mediastinum: Heart size and shape are normal. No mediastinal widening or masses. No hilar or mediastinal lymphadenopathy. Bony Thorax: Bony thorax appears intact without fractures or deformities. Soft Tissues: Soft tissues overlying the chest wall are unremarkable. IMPRESSION: 1. No acute cardiopulmonary abnormalities are identified. 2. Comparing previous X-ray dated 01/22/2024, findings remain stable. Electronically signed by Bharathi Porter 11-01-2024 07:51 AM
[2024-11-01] MEDS: ASPIRIN CHEW 324 MG PO STA (08:02)
[2024-11-01 11:38] VITALS: RESP 18
[2024-11-01] MEDS ORDERED: REGADENOSON 0.4 MG/5 ML SYR IV ONE (11:41)
[2024-11-01] MEDS ORDERED: NITROGLYCERIN SL 0.4 MG/TAB TAB SL PRN (12:29)
[2024-11-01] MEDS ORDERED: METOPROLOL TARTRATE 25 MG TAB PO PRN (12:29)
--- NOTE | 2024-11-01 13:53 | Cardiology Consultation ---
Date of Consultation November 01, 2024 Assessment & Plan (1) Palpitations: - Recommend placement of a loop recorder - Recommend electrolyte repletion - May continue metoprolol tartrate as needed, though would consider a maintenance medication as she does appear to be hypertensive at times Supervising Physician Co-Signing Physician Notes Patient seen and examined, reviewed in detail with Danielle Gambino. She has ongoing chest discomfort and has very low level cardiac enzymes with no significant electrocardiographic changes. With a history of a negative coronary CT angiogram is very unlikely this represents myocardial ischemia based on coronary artery disease although spasm is a possibility. In addition she has palpitations and the cause of these has not been identified. A loop recorder is reasonable and will be planned as an outpatient. History of Present Illness Attending Physician: Nimo Tirado DO History of Present Illness Lamar a 49-year-old female with a past medical history of hypertension, HLD, varicose veins, GERD, hypothyroidism, IBS who was admitted under observation status. She awoke this morning at 0330 with nonradiating chest pressure, palpations and dizziness. She proceeded to her kitchen to get a drink of water and then took her blood pressure. Reports her systolic was 186. She denied any shortness of breath at that time. She reports feeling ill over the last several days. On Thursday, she had left-sided chest pressure along with a burning sensation which radiated to her bilateral shoulders. She does have a history of GERD, but states that this sensation was different. In the ER, her EKG is unremarkable. Vitals signs are stable. Her initial troponin is slightly elevated at 21.9. She did have a nuclear stress test completed in which she vomited, results are benign. She is not having any further chest discomfort or dizziness. The patient has been seen by Dr. Wright in the past for palpitations. She did wear a composing room supervisor which showed NSR with PACs. She did have a cardiac stress test earlier this year which was negative for any acute concern. E chocardiogram was completed in March 2024 which revealed a EF of 60 to 65% without any wall motion abnormalities. There was a talk of a tilt table test in the past given her symptoms, but the patient declined. Her last episode like this was in July 2024. Previously, she had been prescribed amlodipine and metoprolol succinate. She was unable to tolerate both of these medications. She is now on metoprolol tartrate 25 mg as needed for palpitations. Given these episodes are fairly spaced out, a loop recorder insertion would be reasonable at this point. Since admission, her vitals have been stable and she have not any further episodes as discussed above. Allergies Allergy/AdvReac Type Severity Reaction Status Date / Time bupropion [From Wellbutrin] Allergy Severe SOB Verified 11/04/24 10:21 sumatriptan AdvReac Severe HEART Verified 11/04/24 10:21 PALPITATIONS Home Medications Medication Instructions Recorded Confirmed Type venlafaxine 150 mg 150 mg PO QAM 09/30/18 11/04/24 History capsule,extended release 24 hr estradiol 0.06 mg/24 hr weekly 0 patch topical UD 01/20/19 11/04/24 History transdermal patch esomeprazole magnesium 40 mg 40 mg PO BID 11/06/20 11/04/24 History capsule,delayed release (Nexium) butalbital 50 mg-acetaminophen 300 1 cap PO Q4H PRN Migraine Headache 09/25/21 11/04/24 History mg-caffeine 40 mg-codeine 30 mg cap (Fioricet with Codeine) fremanezumab-vfrm 225 mg/1.5 mL 225 mg subcut MONTHLY 09/25/21 11/04/24 History subcutaneous auto-injector (Ajovy) multivitamin 1 tab PO HS 08/12/23 11/04/24 History conjugated estrogens 0.625 mg/gram 0 mg vaginal DAILY 02/08/24 11/04/24 History vaginal cream (Premarin) risankizumab-rzaa 150 mg/mL 150 mg subcut UD 05/23/24 11/04/24 History subcutaneous pen injector (Skyrizi) amlodipine 5 mg tablet 0 mg PO QAM 05/30/24 11/04/24 History telmisartan 40 mg tablet 0 mg PO HS 05/30/24 11/04/24 History metoprolol tartrate 25 mg tablet 25 mg PO DAILY PRN palpitations 08/25/24 11/04/24 Rx #30 tabs nitroglycerin 0.4 mg sublingual 0.4 mg sublingual Q5M PRN chest 08/25/24 11/04/24 Rx tablet pain #30 tabs levothyroxine 112 mcg tablet 112 mcg PO DAILY 10/03/24 11/04/24 History semaglutide (weight loss) 2.4 0 mg subcut Q7D 10/03/24 11/04/24 History mg/0.75 mL subcutaneous pen injector (Zena) ergocalciferol (vitamin D2) 1,250 50,000 unit PO WK 11/01/24 11/04/24 History mcg (50,000 unit) capsule sucralfate 1 gram tablet (Carafate) 1 g PO Q6H 12 weeks #336 tabs 11/01/24 11/04/24 Rx amlodipine 5 mg tablet 5 mg PO DAILY #30 tabs 11/04/24 11/04/24 Rx Patient History Medical History Hx of motion sickness Nausea and vomiting after administration of anesthetic agent Hx of chest pain Hx of migraines History of palpitations Sleep apnea Anxiety and depression Hyperlipidemia Hypertension Hypothyroidism History of gastritis Lower back pain Surgical History History of breast biopsy H/O parathyroidectomy History of carpal tunnel release Hx of cardiac catheterization History of vein stripping Hx of colonoscopy History of cholecystectomy History of D&C H/O esophagogastroduodenoscopy H/O: hysterectomy History of parathyroid surgery [place] teeth removed (04/19/12) Family History Mother Colon cancer Father Heart problem Hypertension Brother Heart problem Environmental allergies Hypertension Grandmother Breast cancer Grandmother Diabetes Asthma Unknown Breast cancer Sister Sinusitis Environmental allergies Other No family history of adverse response to anesthesia Social History Smoking Status: Never smoker Second Hand Exposure: No; Do You Dip or Chew Tobacco: No; Hx Alcohol Use: Yes Alcohol type: wine Alcohol Intake Frequency: Monthly or Less Hx Substance Use: No Preferred Language: Wolof Communication Ability: Effective Visual Impairment: No Limitations Hearing Ability: Normal Home Security Alarm Installer Required: No Beliefs That Will Affect Care: None marital status: Current Living Situation: Spouse and Family current occupational status: employed current occupation: medical chief sales officer How many Children do You have: 2 Feels Safe at Home: Yes Diet: regular caffeine: Yes (3-4 coffee daily) during the past year weight has: decreased > 10 lbs Dental Care, Regularly: Yes Physical Activity Frequency: 1-2 Times per Week Physical Activity Frequency Comment: walking Seatbelt Use: always Sunscreen Use: Yes Do you think of yourself as: straight/heterosexual Gender Identity: Female Assistive Devices: CPAP and Glasses Review of Systems Review of Systems: as per HPI Physical Exam Physical Exam: Physical Exam: AOx3. Mood affect appear normal. All questions appropriately. HEENT: Sclerae are anicteric. Pupils are equal and reactive to light and accommodation. Extraocular movements were intact. Neuro: Cranial nerves intact Lungs: Lungs are clear to auscultation bilaterally. There are no rales wheezes or rhonchi. She has normal respiratory effort without use of accessory muscles. There is normal pulmonary excursion. Cardiac: The rhythm was regular. S1 and S2 were normal. There are no murmurs on examination. The PMI was not markedly displaced on palpation. Extremities: Patient has bilateral radial pulses that are equal in intensity. There is no evidence cyanosis or clubbing. There was no evidence of significant peripheral edema bilaterally. Skin: There are no rashes noted on examination today. Results & Data Vital Signs (Past 12 Hours) Vital Signs Temp Pulse Pulse Resp BP BP Pulse Ox 11/01/24 12:33 68 18 127/90 98 11/01/24 11:38 68 18 143/95 H 97 11/01/24 11:14 74 11/01/24 10:00 69 16 140/92 97 11/01/24 08:25 85 16 142/73 H 97 11/01/24 08:00 72 18 141/95 H 100 11/01/24 07:11 68 11/01/24 06:56 70 20 99 11/01/24 06:47 36.8 C 78 20 158/103 H 95 O2 Del Method 11/01/24 12:33 Room Air 11/01/24 11:38 Room Air 11/01/24 11:14 11/01/24 10:00 Room Air 11/01/24 08:25 Room Air 11/01/24 08:00 11/01/24 07:11 11/01/24 06:56 Room Air 11/01/24 06:47 Room Air
[2024-11-01] MEDS ORDERED: CAFFEINE CITRATE 60 MG/3 ML VIAL IV ONE (14:25)
[2024-11-01] MEDS ORDERED: BUTALBITAL/ACETAMIN/CAFFEINE TAB PO PRN (16:05)
--- NOTE | 2024-11-01 16:09 | Myocardial Perfusion Study ---
Date of Service November 01, 2024 Myocardial Perfusion Study [facility] Myocardial Perfusion Study Report Procedure: 1. Myocardial perfusion study performed in multiple views/images 2. Lexiscan pharmacologic stress ECG Indication: chest pounding Ordering physician: Dr. Tirado Procedural details: For the stress portion of the study, Lexiscan 0.4 mg was intravenously administered followed by a saline flush. This was followed by 29.9 mCi of technetium 99m Cardiolite, injected at 1345 on 11/01/2024. 30 minutes following the injection, imaging of the heart was performed in multiple projections. For the rest portion of the study, 10.8 mCi technetium 99m Cardiolite was injected intravenously at 1130 on 11/01/2024. 1 hour following the injection, imaging of the heart was performed in the same projections. Lexiscan stress ECG: Resting ECG demonstrated: Sinus rhythm at 93 beats per Maximum heart rate: 150 bpm Maximal, age-predicted heart rate: 88% Resting blood pressure: 142/77 mmHg Maximum blood pressure: 153/94 mmHg The stress ECG response was negative for ischemia Arrhythmia: Rare occasional premature ventricular contractions were observed Symptoms: No chest discomfort reported. Patient developed nauseousness and vomiting after receiving regadenoson. Symptoms resolved in the post-rest recovery interval having received 40 mg of IV caffeine. Findings: Rotating raw imaging demonstrated no significant lung uptake. There is no significant motion artifact. There is extra cardiac radiopharmaceutical uptake inferiorly. Heart size appeared normal. Myocardial perfusion demonstrated normal stress and resting perfusion. Ejection fraction: 69% Wall motion: Normal No significant transient ischemic dilation. Impression: 1. Normal pharmacologic myocardial perfusion imaging study without evidence of scar or inducible ischemia 2. Normal gated wall motion, normal LVEF by the gated SPECT technique, 69% 3. Side effect of nauseousness and vomiting occurred with regadenoson administration. No chest discomfort was reported. Symptoms resolved in the post-rest recovery interval having received 40 mg of IV caffeine. Allison Guzmán DO Cardiology
[2024-11-01 16:28] VITALS: BP 142/90; O2SAT 100
--- NOTE | 2024-11-01 16:30 | History & Physical Report ---
Date of Service November 01, 2024 Assessment & Plan (1) Elevated troponin: (2) Chest pain: (3) Varicose veins of both lower extremities: Lorena Castro is a 49 yo woman with PMH of atypical chest pain, SVT, family hx of aortic aneursym, syncope event, psoriatic arthritis she's has strong FHx of aortic aneurysm, her brother from aortic aneurysm age 55. she has had cath on 11/2021, and CTA on 06/2021. she was schedule for tilt table test given her syncope spell in the past, was advised to has metoprolol 25 BID for palpitation on 11/01/2024, came to ED for chest pain, evaluation, troponin slightly elevated. started around 3:30am was about to has pre-syncope event, but did not occured she s/p lexiscan on 11/01/2024 afternoon, cardiology was consulted for evalu for microvascular disease and whether imdur is effective for symptom relieve 1. chest pain episode 2. hx of SVT, family hx of aortic aneurysm 3. syncope event 1. chest pain episode f/u on lexiscan test given she has extensive Fhx of aortic aneursym, plan for CTA while she's here cardiology following appreciate their input about whether imdur is effective for symptom control 2. FHx of aortic aneurysm 3. GERD-protonix BID 4. iron deficiency, she should f/u with GI for colonoscopy her mother has colonoscopy cancer risk of ; cancer explained 3. hypertension amlodipine 5mg. she's on telmisartan 40mg she's no longer on metoprolol 4. mood disorder, effexor 150mg Admission and Anticipated Discharge Date Admission Date: November 01, 2024 History of Present Illness Chief Complaint: chest pain episode yesterday troponin elevation FHx of aneursym Primary Care Provider: Ninfa Brown, Lamar Castro is a 49 yo woman with PMH of SVT, paroxysmal tachycardia, syncope event hypertension. sleep apnea, family hx of aortic aneurysm. she follows with cardiology Dr. Wright and has coronary cath in 11/2021. also has had negative for stress test. in 05/2023, her 55 yo brother from aortic aneursym. her last CTA is on 05/2023. she has has syncope event and then was schedule for tilt table test on 11/01, patient presented to our hospital with chest pain episode and near syncope event. her troponin elevated and referred by ED for observation she s/p lexiscan stress test on 11/01/2024 afternoon the ongoing question is whether her chest pain is related to arrthymia versus microvascular disease cardiology was consulted to determine whether patient will benefit from trial of imdur for symptom management on interview; she denied any coughing, wheezing she has no limitation of exericxe tolerance at baseline Allergies Allergy/AdvReac Type Severity Reaction Status Date / Time bupropion [From Wellbutrin] Allergy Severe SOB Verified 10/03/24 08:31 sumatriptan AdvReac Severe HEART Verified 10/03/24 08:31 PALPITATIONS Home Medications Medication Instructions Recorded Confirmed Type venlafaxine 150 mg 150 mg PO QAM 09/30/18 11/01/24 History capsule,extended release 24 hr estradiol 0.06 mg/24 hr weekly 0 patch topical UD 01/20/19 11/01/24 History transdermal patch esomeprazole magnesium 40 mg 40 mg PO BID 11/06/20 11/01/24 History capsule,delayed release (Nexium) butalbital 50 mg-acetaminophen 300 1 cap PO Q4H PRN Migraine Headache 09/25/21 11/01/24 History mg-caffeine 40 mg-codeine 30 mg cap (Fioricet with Codeine) fremanezumab-vfrm 225 mg/1.5 mL 225 mg subcut MONTHLY 09/25/21 11/01/24 History subcutaneous auto-injector (Ajovy) multivitamin 1 tab PO HS 08/12/23 11/01/24 History conjugated estrogens 0.625 mg/gram 0 mg vaginal DAILY 02/08/24 11/01/24 History vaginal cream (Premarin) risankizumab-rzaa 150 mg/mL 150 mg subcut UD 05/23/24 11/01/24 History subcutaneous pen injector (Skyrizi) amlodipine 5 mg tablet 0 mg PO QAM 05/30/24 11/01/24 History telmisartan 40 mg tablet 0 mg PO HS 05/30/24 11/01/24 History metoprolol tartrate 25 mg tablet 25 mg PO DAILY PRN palpitations 08/25/24 11/01/24 Rx #30 tabs nitroglycerin 0.4 mg sublingual 0.4 mg sublingual Q5M PRN chest 08/25/24 11/01/24 Rx tablet pain #30 tabs levothyroxine 112 mcg tablet 112 mcg PO DAILY 10/03/24 11/01/24 History semaglutide (weight loss) 2.4 0 mg subcut Q7D 10/03/24 11/01/24 History mg/0.75 mL subcutaneous pen injector (Wegovy) ergocalciferol (vitamin D2) 1,250 50,000 unit PO WK 11/01/24 11/01/24 History mcg (50,000 unit) capsule sucralfate 1 gram tablet (Carafate) 1 g PO Q6H 12 weeks #336 tabs 11/01/24 Rx Past Med/Surg History Problem List (Updated 11/01/24 @ 08:05 by Sergio Abdalla DO) Elevated troponin (Acute) Syncope GERD (gastroesophageal reflux disease) Elevated LFTs Umbilical hernia without mention of obstruction or gangrene Chest pain Encounter for pre-operative examination Varicose veins of both lower extremities Palpitations Family history of cardiac disorder Dyslipidemia Atypical chest pain Family history of colon cancer Fatty liver disease, nonalcoholic RUQ abdominal pain History of high blood pressure (Acute) Anxiety (Acute) Eczema (Acute) Elevated parathyroid hormone (Acute) Granuloma secondary to intubation (Acute) Hannah's thyroiditis (Acute) History of miscarriage (Acute 04/19/12) Hypothyroidism (Acute) Laryngopharyngeal reflux (Acute) Migraine headache (Acute) Osteopenia (Acute) Pelvic pain (Acute) Thyroid pain (Acute) Urinary frequency (Acute) Urinary urgency (Acute) Vitamin D insufficiency (Acute) Right upper quadrant abdominal pain (Acute) Biliary colic (Acute) Cyst of ovary, left (Chronic) IBS (irritable bowel syndrome) (Chronic) Medical History Hx of motion sickness Nausea and vomiting after administration of anesthetic agent Hx of chest pain Hx of migraines History of palpitations Sleep apnea Anxiety and depression Hyperlipidemia Hypertension Hypothyroidism History of gastritis Lower back pain Surgical History History of breast biopsy H/O parathyroidectomy History of carpal tunnel release Hx of cardiac catheterization History of vein stripping Hx of colonoscopy History of cholecystectomy History of D&C H/O esophagogastroduodenoscopy H/O: hysterectomy History of parathyroid surgery [place] teeth removed (04/19/12) Family History Mother Colon cancer Father Heart problem Hypertension Brother Heart problem Environmental allergies Hypertension Grandmother Breast cancer Grandmother Diabetes Asthma Unknown Breast cancer Sister Sinusitis Environmental allergies Other No family history of adverse response to anesthesia Social History Smoking Status: Never smoker Second Hand Exposure: No; Do You Dip or Chew Tobacco: No; Hx Alcohol Use: Yes Alcohol type: wine Alcohol Intake Frequency: Monthly or Less Hx Substance Use: No Preferred Language: Khmer Communication Ability: Effective Visual Impairment: No Limitations Hearing Ability: Normal Disbursing Agent Required: No Beliefs That Will Affect Care: None marital status: Current Living Situation: Spouse and Family current occupational status: employed current occupation: medical office support associate How many Children do You have: 2 Feels Safe at Home: Yes Diet: regular caffeine: Yes (3-4 coffee daily) during the past year weight has: decreased > 10 lbs Dental Care, Regularly: Yes Physical Activity Frequency: 1-2 Times per Week Physical Activity Frequency Comment: walking Seatbelt Use: always Sunscreen Use: Yes Do you think of yourself as: straight/heterosexual Gender Identity: Female Assistive Devices: CPAP and Glasses Review of Systems Review of Systems: Constitutional: No Weight Change, No Fever, No Chills, No Night Sweats, No Fatigue, No Malaise Cardiovascular: + chest pain , No SOB, No PND, No Dyspnea on Exertion, No Orthopnea, No Claudication, No Edema, No Palpitations Respiratory: No Cough, No Sputum, No Wheezing, No Smoke Exposure, No Dyspnea Gastrointestinal: + for heartburn; No Nausea, No Vomiting, No Diarrhea, No Constipation, No Pain,No Anorexia, No Dysphagia, No Hematochezia, No Melena, No Flatulence, No Jaundice Musculoskeletal: No Arthralgias, No Myalgias, No Joint Swelling, No Joint Stiffness, No Back Pain, No Neck Pain, No Injury History Skin: No Skin Lesions, No Pruritis, No Hair Changes, No Breast/Skin Changes, No Nipple Discharge Neuro: + for hx of syncope; no dizziness Psych: No Anxiety/Panic, No Depression, No Insomnia, No Personality Changes, No Delusions, No Rumination, No SI/HI/AH/VH, No Social Issues, No Memory Changes, No Violence/Abuse Hx., No Eating Concerns Physical Exam Physical Exam: VITALS: Reviewed. WEIGHT/BMI reviewed. GEN: Healthy appearing, well-developed, NAD. PSYCH: Good Judgment. AOx3. Normal memory, mood, and affect. HEENT -Head: NC/AT; NECK: Supple, with no masses. CV: RRR, no m/r/g. chest wall non-tender to palpation LUNGS: CTAB, no w/r/c. ABD: no epigstric pain Soft, NT/ND, NBS, no masses or organomegaly. : no CVA tenderness SKIN: Warm, well perfused. No skin rashes or abnormal lesions. NEURO: Ambulating with no limitations. Normal muscle strength and tone. No focal deficits. Results & Data Results & Data Vital Signs (Past 12 Hours) Vital Signs Temp Pulse Pulse Resp BP BP Pulse Ox 11/01/24 12:33 68 18 127/90 98 11/01/24 11:38 68 18 143/95 H 97 11/01/24 11:14 74 11/01/24 10:00 69 16 140/92 97 11/01/24 08:25 85 16 142/73 H 97 11/01/24 08:00 72 18 141/95 H 100 11/01/24 07:11 68 11/01/24 06:56 70 20 99 11/01/24 06:47 36.8 C 78 20 158/103 H 95 O2 Del Method 11/01/24 12:33 Room Air 11/01/24 11:38 Room Air 11/01/24 11:14 11/01/24 10:00 Room Air 11/01/24 08:25 Room Air 11/01/24 08:00 11/01/24 07:11 11/01/24 06:56 Room Air 11/01/24 06:47 Room Air Laboratory Results Laboratory Results - last 72 hr 11/01/24 11/01/24 06:55 08:52 WBC 6.00 RBC 4.31 Hgb 12.4 Hct 36.8 L MCV 85.4 MCH 28.8 MCHC 33.7 RDW Std Deviation 41.2 RDW Coeff of Dwayne 13.2 Plt Count 212 MPV 9.0 L Immature Gran % (Auto) 0.3 Neut % (Auto) 72.6 Lymph % (Auto) 18.3 [place] % (Auto) 7.5 Eos % (Auto) 1.0 Baso % (Auto) 0.3 Neut # (Auto) 4.35 Lymph # (Auto) 1.10 L [place] # (Auto) 0.45 Eos # (Auto) 0.06 Baso # (Auto) 0.02 Immature Gran # (Auto) 0.02 PT 10.6 INR 1.0 D-Dimer < 190 Sodium 139 Potassium 3.4 L Chloride 104 Carbon Dioxide 30 Anion Gap 5 BUN 6 Creatinine 0.60 Est Cr Clr Drug Dosing 91.8 eGFR 108.61 BUN/Creatinine Ratio 10.0 Glucose 95 Calcium 8.6 Magnesium 2.2 Total Bilirubin 0.4 AST 15 ALT 15 Alkaline Phosphatase 47 Troponin I High Sens 20.5 H 21.9 H Total Protein 6.9 Albumin 4.1 Globulin 2.8 Albumin/Globulin Ratio 1.5 Lipase 26 TSH 0.712 Code Status & VTE Plan VTE Prophylaxis Plan VTE Prophylaxis will be ordered: Yes PG Care Time/CCT Total # of Minutes Spent Total Time Spent with Patient: Total time spent is greater than 50% in coordination of care (as documented) at patient's floor/unit and/or counseling patient: Coding Level of Care Code 40309 INT INP/OBS CARE 1/40MIN Diagnoses Elevated troponin R79.89 Chest pain R07.9 Varicose veins of both lower extremities I83.93 Time Spent (min) 34
--- NOTE | 2024-11-01 17:15 | Discharge Summary ---
Discharge Summary Date of Service November 01, 2024 Principal Dx & Hospital Course #1 = Principal Diagnosis (1) Elevated troponin: Lamar Castro is a 49 yo woman, she worked in a doctor office PMH of hypertension, GERD, mood disorder, she has following with cardiology and has cardiac cath in past 3-4 years here with chest pain episode, troponin elevation, in the observation for chest pain s/p lexiscan and negative for ischemia, d-dimer negative, and no recent travel of hx of PE she's denied any tearing pain or chest pain radiate into the back. she was dc home on 11/01/2024 after normal stress test we discussed that she's need good BP control and regular CTA monitor for aortic aneursym given strong Fhx, she was provide option for CTA imaging [facility] inpatient but she's deferring outpateint imaging follow up for her GERD, added carafate to her nexium regime for her anemia, her mother has colonoscopy cancer and her last colonoscopy was more than 10 years ago she will need a referral t GI for colonoscopy screening she was dc home in the afternoon with carafate she need age approprate cancer screening (mammogram, colonoscopy, pap smear) (2) Chest pain: (3) Varicose veins of both lower extremities: Plan Lamar Castro is a 49 yo woman with PMH of atypical chest pain, SVT, family hx of aortic aneursym, syncope event, psoriatic arthritis she's has strong FHx of aortic aneurysm, her brother from aortic aneurysm age 55. she has had cath on 11/2021, and CTA on 06/2021. she was schedule for tilt table test given her syncope spell in the past, was advised to has metoprolol 25 BID for palpitation on 11/01/2024, came to ED for chest pain, evaluation, troponin slightly elevated. started around 3:30am was about to has pre-syncope event, but did not occured she s/p lexiscan on 11/01/2024 afternoon, cardiology was consulted for evalu for microvascular disease and whether imdur is effective for symptom relieve 1. chest pain episode 2. hx of SVT, family hx of aortic aneurysm 3. syncope event 1. chest pain episode f/u on lexiscan test given she has extensive Fhx of aortic aneursym, plan for CTA while she's here cardiology following appreciate their input about whether imdur is effective for symptom control 2. FHx of aortic aneurysm 3. GERD-protonix BID 4. iron deficiency, she should f/u with GI for colonoscopy her mother has colonoscopy cancer risk of ; cancer explained 3. hypertension amlodipine 5mg. she's on telmisartan 40mg she's no longer on metoprolol 4. mood disorder, effexor 150mg Admission HPI Per Admitting Provider Lamar Castro is a 49 yo woman with PMH of SVT, paroxysmal tachycardia, syncope event hypertension. sleep apnea, family hx of aortic aneurysm. she follows with cardiology Dr. Wright and has coronary cath in 11/2021. also has had negative for stress test. in 05/2023, her 55 yo brother from aortic aneursym. her last CTA is on 05/2023. she has has syncope event and then was schedule for tilt table test on 11/01, patient presented to our hospital with chest pain episode and near syncope event. her troponin elevated and referred by ED for observation she s/p lexiscan stress test on 11/01/2024 afternoon the ongoing question is whether her chest pain is related to arrthymia versus microvascular disease cardiology was consulted to determine whether patient will benefit from trial of imdur for symptom management on interview; she denied any coughing, wheezing she has no limitation of exericxe tolerance at baseline Discharge Exam VITALS: Reviewed. WEIGHT/BMI reviewed. GEN: Healthy appearing, well-developed, NAD. PSYCH: Good Judgment. AOx3. Normal memory, mood, and affect. HEENT -Head: NC/AT; -Mouth and throat: MMM. Normal gums, mucosa, palate,. Good dentition. NECK: Supple, with no masses. CV: RRR, no m/r/g. radial pulse symmmetric on both side; chest wall non-tender to palpation LUNGS: CTAB, no w/r/c. ABD: Soft, NT/ND, NBS, no masses or organomegaly. : N/A SKIN: Warm, well perfused. No skin rashes or abnormal lesions. NEURO: Ambulating with no limitations. Normal muscle strength and tone. No focal deficits. Discharge Plan Discharge Items Patient Disposition: Home - Self-Care Reason For Visit: CHEST PAIN, TROP ELEVATION Discharge Diagnosis: chest pain episode GERD Condition on Discharge: Fair Activity: Resume your previous activity Lifting: Gradually increase as tolerated Non-emergency contact: Primary Care Provider and Landscape Painter Call non-emergency contact if: you have any medication questions Follow-up/Referrals: Ninfa Brown DO [Primary Care Provider] - Diet: Regular Addtl Attending Provider Instructions: follow up with cardiology you need to see farm management professor Pending Studies at Discharge: Yes Studies:: colonoscopy Stand-Alone Forms: My [facility], Smoking Cessation Medications and DC Order Prescriptions: New sucralfate [Carafate] 1 gram tablet 1 g PO Q6H 84 Days Qty: 336 0RF Continued Skyrizi 150 mg/mL pen injector 150 mg subcut UD Patient Comments: every 3 months venlafaxine 150 mg capsule,extended release 24hr 150 mg PO QAM estradiol 0.06 mg/24 hr patch weekly 0 patch topical UD Patient Comments: 11/01- last filled 07/13 84 day supply #24 Rx Instructions: twice a week, Thu/ esomeprazole magnesium [Nexium] 40 mg capsule,delayed release(DR/EC) 40 mg PO BID Ajovy Autoinjector 225 mg/1.5 mL auto-injector 225 mg subcut MONTHLY Rx Instructions: every month uhtousaohs-vnqoxmzbaf-gpg-cod [Fioricet with Codeine] [id number] mg capsule 1 cap PO Q4H PRN (Reason: Migraine Headache) levothyroxine 112 mcg tablet 112 mcg PO DAILY Premarin 0.625 mg/gram cream 0 mg vaginal DAILY Patient Comments: 11/01- last filled 12/24/23 60 day supply Rx Instructions: off 5 days; repeat cycle Wegovy 2.4 mg/0.75 mL pen injector 0 mg subcut Q7D Patient Comments: 11/01- last filled 07/28 84 day supply Rx Instructions: 1.7mg metoprolol tartrate 25 mg tablet 25 mg PO DAILY PRN (Reason: palpitations) Qty: 30 2RF nitroglycerin 0.4 mg tablet, sublingual 0.4 mg sublingual Q5M PRN (Reason: chest pain) Qty: 30 3RF Rx Instructions: do not exceed 3 doses per episode amlodipine 5 mg tablet 0 mg PO QAM Hold Instructions: Home Medication placed on hold at Doctor's office Patient Comments: 11/01- last filled 02/08 90 day supply #90 telmisartan 40 mg tablet 0 mg PO HS Hold Instructions: Home Medication placed on hold at Doctor's office Patient Comments: 11/01- 40 mg last filled 02/09/24 90 day supply #90, 80mg last filled 04/23/24 30 day supply #30 ergocalciferol (vitamin D2) 1,250 mcg (50,000 unit) capsule 50,000 unit PO WK multivitamin Tablet 1 tab PO HS Patient Comments: 11/01- otc unable to verify Discontinued metoprolol succinate 100 mg tablet extended release 24 hr 0 mg PO QAM Patient Comments: 11/01- last filled 04/08 30 day supply #30 Discharge Orders: Discharge Order (Routine); Ordered 11/01/24 Ordered By: Nimo Velasquez/Other Patient Handouts: Colorectal Cancer Screening Admission Data Admit Date/Time: 11/01/24 10:08 Attending Provider: Nimo Tirado Admit Provider: Nimo Tirado Primary Care Provider: Ninfa Brown Other Providers: Nimo Tirado; Adam Wiggins Other Interventions: Discharge Summary Assessment (RN) Last Done: 11/01/24 17:05 Hospital Stay Data Consultations 11/01/24 07:59 ED Decision to Admit Stat 11/01/24 10:12 Consult Cardiology Stat Pending Results Patient Have Any Pending Studies at Discharge: Yes Discharge Instructions Given to Patient (Per Discharging Provider) follow up with cardiology you need to see farm management professor Total Time Total Time Spent Total Time Spent (In Minutes): 25 Coding Level of Care Code 29086 IN/OBS DISCH 30 MIN/LESS Diagnoses Elevated troponin R79.89 Chest pain R07.9 Varicose veins of both lower extremities I83.93 Time Spent (min) 25
[2024-11-01 17:34] VITALS: PULSE 74
[2024-11-01] MEDS ORDERED: MULTIVITAMIN TAB PO SCH (21:00)
[2024-11-01] MEDS ORDERED: LOSARTAN POTASSIUM 50 MG TAB PO SCH (21:00)
[2024-11-02] MEDS ORDERED: LEVOTHYROXINE SODIUM 112 MCG TABLET PO SCH (06:30)
[2024-11-02] MEDS ORDERED: VENLAFAXINE HCL XR 150 MG CAPXR PO SCH (09:00)
--- NOTE | 2024-11-05 09:50 | Electrocardiogram Report ---
Test Reason : Blood Pressure : */* mmHG Vent. Rate : 79 BPM Atrial Rate : 79 BPM P-R Int : 154 ms QRS Dur : 84 ms QT Int : 338 ms P-R-T Axes : 78 62 52 degrees QTcB Int : 387 ms Normal sinus rhythm Normal ECG When compared with ECG of 08-Apr-2024 04:20, No significant change was found Confirmed by Adam Wiggins ([id number]) on 11/05/2024 9:50:02 AM Referred By: REFERRED SELF Confirmed By: Adam Wiggins
[2024-11-06] MEDS ORDERED: ERGOCALCIFEROL 1250 MCG (50,000 UNITS) CAP PO SCH (09:00)
== END 2024-11-01 17:56 | disposition home or self-care (01) ==
LOC: EDINP 06:44 → ED 06:44 → EDINP 12:30 → 2W 14:18
DX: F39 Unspecified mood [affective] disorder; K21.9 Gastro-esophageal reflux disease without esophagitis; I83.93 Asymptomatic varicose veins of bilateral lower extremities; Z79.899 Other long term (current) drug therapy; R07.9 Chest pain, unspecified; R79.89 Other specified abnormal findings of blood chemistry; Z88.8 Allergy status to other drugs, medicaments and biological substances; I10 Essential (primary) hypertension; Z79.890 Hormone replacement therapy